=== PATIENT | male | born 1995 | race Two or more races ===

== ENCOUNTER 2019-03-31 15:33 | Emergency (ER) | payer SELFPAY ==
[~2019-03-31] VITALS: Ht 165.1 cm; Wt 90.7 kg
[2019-03-31 16:02] VITALS: BP 143/95
--- NOTE | 2019-03-31 16:06 | PHYS DOC ---
Adult General Chief Complaint Chief Complaint: WRIST PAIN HPI HPI Patient is a 24 year old male who presents with moderate left wrist pain that began a couple minutes prior to coming to the ED. 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 Patient states the pain is worse on range of motion. Denies anything specifically relieving the pain. Describes the pain as throbbing and constant. Patient is right-handed. Review of Systems Review of Systems Constitutional: Denies fever or chills [] Musculoskeletal: Reports left wrist pain Integument: Denies rash or skin lesions [] Neurologic: Denies headache, focal weakness or sensory changes [] Endocrine: Denies polyuria or polydipsia [] All other systems were reviewed and found to be within normal limits, except as documented in this note. Current Medications Current Medications Current Medications Medications (Trade) Dose Ordered Sig/Egma Start Time Stop Time Status Last Admin Dose Admin Diphtheria/ Tetanus/Acell Pertussis (Boostrix) 0.5 ml ONCE ONCE 03/31/19 16:30 03/31/19 16:31 DC Allergies Allergies Allergies Coded Allergies Type Severity Reaction Last Updated Verified No Known Drug Allergies 03/31/19 No Physical Exam Physical Exam Constitutional: Well developed, well nourished, no acute distress, non-toxic appearance. [] Skin: Warm, dry, no erythema, no rash. [] Back: No tenderness, no CVA tenderness. [] Extremities: Right ventral wrist with a superficial bruising approximately 3 cm long. There is moderate tenderness on palpation of the right dorsal wrist. No obvious scaphoid tenderness. Full passive range of motion to the right wrist, f ull active range of motion to the right fingers. Adequate radial, medial, ulnar sensation to the right upper extremity. +2 right radial pulse. Cap refill less than 2 seconds the right fingers. Neurologic: Alert and oriented X 3, normal motor function, normal sensory function, no focal deficits noted. [] Psychologic: Affect normal, judgement normal, mood normal. [] Current Patient Data Vital Signs Vital Signs Date Time Temp Pulse Resp B/P (MAP) Pulse Ox O2 Delivery O2 Flow Rate FiO2 03/31/19 16:02 97.2 58 12 143/95 (111) 99 Room Air 97.2 EKG EKG [] Radiology/Procedures Radiology/Procedures []PROCEDURE: WRIST 3V RIGHT EXAM: Right wrist, 3 views. HISTORY: Blunt trauma. COMPARISON: None. FINDINGS: 3 views of the right wrist are obtained. There is no fracture, dislocation or subluxation. IMPRESSION: No acute osseous finding. Electronically signed by: Sonny Pandya MD (03/31/2019 4:04 PM) [facility] DICTATED and SIGNED BY: SONNY PANDYA MD DATE: 03/31/19 160 Course & Med Decision Making Course & Med Decision Making Pertinent Labs and Imaging studies reviewed. (See chart for details) This is a 24-year-old male patient who presents to the ED today complaining of right wrist pain that began after a tire pressure machine fell on his right wrist at work. Right wrist x-rays interpreted by radiologist are negative for any acute findings. Tetanus was updated. Velcro splint applied to the right wrist by the ED RN, neurovascular exam is intact. Ice elevation encouraged. Follow-up with orthopedic doctor in one week if pain persists. Dragon Disclaimer Dragon Disclaimer This electronic medical record was generated, in whole or in part, using a voice recognition dictation system. Departure Departure Impression: Primary Impression: Contusion of wrist, right Disposition: 01 HOME, SELF-CARE Condition: STABLE Referrals: NO PCP (PCP) MANDA ARREOLA II, MD follow up in one week Patient Instructions: Contusion, [id number] Additional Instructions: You were evaluated in emergency room for right wrist contusion. Wear the provided Velcro splint as needed. Try to ice and elevate the extremity. Please take [id number] pain relievers specifically ibuprofen or Tylenol as needed for pain. Follow-up with the provided orthopedic doctor in 1-2 weeks if pain persists. Apply Neosporin to the bruised area on the wrist. Problem Qualifiers Primary Impression: Contusion of wrist, right Encounter type: initial encounter Qualified Codes: S60.211A - Contusion of right wrist, initial encounter PABLITOGRETCHENNicoleKO [employer] Mar 31, 2019 16:06
[2019-03-31] MEDS ORDERED: DIPHTH,PERTUSS(ACELL),TET TOX 0.5 ML DISP.SYRIN. VAX IM ONE (16:30)
== END 2019-03-31 16:52 | disposition home or self-care (01) ==
LOC: ER 15:33
DX: S60.211A Contusion of right wrist, initial encounter (principal); W20.8XXA Other cause of strike by thrown, projected or falling object, initial encounter; Y93.89 Activity, other specified; Y92.69 Other specified industrial and construction area as the place of occurrence of the external cause; Y99.0 Civilian activity done for income or pay
CPT/HCPCS: 29125; 73110; 90471; 90715; 99284-25